=== PATIENT | female | born 1930 | race Caucasian/White ===

== ENCOUNTER 2018-03-04 13:38 | Outpatient (CLI) | payer MEDICARE, OTHER ==
--- NOTE | 2018-03-04 14:29 | RAD ---
CHEST 2 VIEWS: COMPARISON: 12/09/06, 02/22/17. FINDINGS: Stable postoperative change in the right breast. Atherosclerosis of the aorta. Normal cardiac silho uette. The pulmonary vessels and hilum are normal. Costophrenic angles are clear. Chronic changes in the lung parenchyma. Hyperinflation is noted. There is no pneumothorax. Diffuse bony deminerali zation. IMPRESSION: Chronic changes. Atherosclerosis. POS: [facility]
== END 2018-03-04 13:39 | disposition home or self-care (01) ==
LOC: RAD 13:38
PROVIDERS: ATTEND Internal Medicine Critical Care Medicine
DX: I70.90 Unspecified atherosclerosis (principal); R06.00 Dyspnea, unspecified; Z98.890 Other specified postprocedural states
CPT/HCPCS: 71046

== ENCOUNTER 2018-03-19 09:12 | Observation (INO) | payer MEDICARE, OTHER ==
[2018-03-19 09:49] LABS: #Eosinphils 0.1 thou/uL (0.0-0.7); #Lymphocytes 1.3 thou/uL (1.20-3.40); #Monocytes 0.6 thou/uL (0.11-0.59); #Neutrophils 4.9 thou/uL (1.40-6.50); %Basophils 0.4 % (0.0-1.0); %Eosinophils 1.6 % (0.0-10.0); %Lymphocytes 18.8 % (21.0-51.0); %Monocytes 8.7 % (0.0-10.0); %Neutrophils 70.5 % (42.0-75.0); Hemoglobin 15.6 g/dL (12.0-16.0); Mean Corpuscular HGB CONC 31.9 g/dL (32.0-36.0); Mean Corpuscular Hemoglobin 29.1 pg (27.0-31.0); Mean Corpuscular Volume 91.3 fl (81.0-99.0); Mean Platelet Volume 8.7 fL (7.4-10.4); Platelet Count 268 thou/uL (130-400); RBC Distribution Width 12.5 % (11.5-14.5); Red Blood Cell (RBC) Count 5.34 mill/uL (4.20-5.40)
[2018-03-19] MEDS ORDERED: Furosemide 40 MG TAB ONE (09:51)
[2018-03-19 09:57] LABS: PTT 30.4 SEC (22.9-36.1); Prothrombin Time 12.9 SEC (12.0-14.7)
[2018-03-19 10:00] LABS: Anion Gap 12 mmol/L (10-20); BUN (Urea Nitrogen) 15 mg/dL (9.8-20.1); Calc. Creatinine Clearance 0 mL/min (70-130); Calcium 9.7 mg/dL (7.8-10.44); Carbon Dioxide 30 mmol/L (23-31); Chloride 103 mmol/L (98-107); Estimated GFR-MDRD 67; Glucose 87 mg/dL (83-110); Potassium 4.2 mmol/L (3.5-5.1); Sodium 141 mmol/L (136-145)
--- NOTE | 2018-03-19 10:25 | CT ---
CT OF HEAD NONCONTRAST: Date: 03/19/18 INDICATION: Altered mental status. FINDINGS: The ventricular system is prominent in size and there is periventricular white matter hypoattenuation . No hemorrhage, mass effect, or midline shift. There is mild scattered paranasal sinus mucosal thick ening. There are lacunar infarctions bilateral basal ganglia. IMPRESSION: 1. Prominence of the ventricular system with periventricular white matter hypoattenuation. No signif icant parenchymal atrophy. Correlate clinically for normal pressure hydrocephalus, which is a clinica l diagnosis. Alternatively, the prominent ventricular system could relate to degree of ex vacuo dilat ation in the setting that the periventricular white matter hypodensities correspond to chronic ischem ic disease. 2. Note is made that size of ventricular system does not correspond to degree of intracranial pressu re. POS: [facility]
[2018-03-19 14:00] LABS: Troponin I Less than 0.010 ng/mL (< 0.028)
[2018-03-19] MEDS ORDERED: Guaifenesin DM 100-10/5 ML UDCUP PO PRN (14:21)
[2018-03-19] MEDS ORDERED: Senokot 8.6 MG TAB PO PRN (14:21)
[2018-03-19] MEDS ORDERED: Acetaminophen 325 MG TAB PO PRN (14:21)
--- NOTE | 2018-03-19 15:17 | HP ---
REASON FOR ADMISSION: TIA. HISTORY OF PRESENTING ILLNESS: The patient gives history of an episode happened around 2:00 p.m. yesterday where she could not focus and was talking gibberish. She also developed left arm and facial paraesthesias. This lasted for nearly 20 minutes. It resolved on its own. She told her granddaughter who is a nurse and was asked to come to the emergency room today. No complaints of chest pain, palpitation, or PND. Patient has chronic cough due to her prior smoking history. She uses cane to ambulate. The patient states she has been a little more unsteady than usual from yesterday after the episode. PAST MEDICAL AND SURGICAL HISTORY: History of prior TIAs x3 with no residual paralysis, hypertension, dyslipidemia, COPD, macular degeneration, history of diverticulosis, GERD, osteoporosis, history of breast cancer with right breast lumpectomy and radiation done at [facility] in 1991. She has completed 5 years of tamoxifen therapy. Total abdominal hysterectomy with bilateral salpingo-oophorectomy due to fibroids, right wrist surgery with plate and screws , history of left wrist surgery as well. CURRENT MEDICATIONS: Omeprazole 20 mg daily, potassium chloride 20 mEq p.o. daily, L-arginine 500 mg p.o. daily, alprazolam 0.25 mg p.o. q.4 hourly p.r.n., Advair Diskus 250/50 mcg daily, Symbicort inhaler 160/4.5 mcg 2 puffs twice daily, DuoNebs q.6 hourly p.r.n., Plavix 75 mg p.o. daily, vitamin D 3000 units p.o. daily, Lasix 40 mg p.o. daily, Crestor 40 mg p.o. at bedtime, Norvasc 5 mg daily. ALLERGIES: CODEINE. PERSONAL HISTORY: Quit smoking 20 years ago, prior to which has smoked 1-2 packs a day for nearly 30-40 years. Does not abuse alcohol or drugs. FAMILY HISTORY: Mother in her childbirth in her 30s. Father lived up to 80 years and had pneumonia prior to his . Had a son who of non- Hodgkin's lymphoma in his 30s, had 4 brothers who are , many of them had cancer of the lung and [place]. REVIEW OF SYSTEMS: The following complete review of systems was negative, unless otherwise mentioned in the HPI or below: Constitutional: Weight loss or gain, ability to conduct usual activities. Skin: Rash, itching. Eyes: Double vision, pain. ENT/Mouth: Nose bleeding, neck stiffness, pain, tenderness. Cardiovascular: Palpitations, dyspnea on exertion, orthopnea. Respiratory: Shortness of breath, wheezing, cough, hemoptysis, fever or night sweats. Gastrointestinal: Poor appetite, abdominal pain, heartburn, nausea, vomiting, constipation, or diarrhea. Genitourinary: Urgency, frequency, dysuria, nocturia. Musculoskeletal: Pain, swelling. Neurologic/Psychiatric: Anxiety, depression. Allergy/Immunologic: Skin rash, bleeding tendency. CODE STATUS: Patient is DNR per prior records and this was confirmed with patient. PHYSICAL EXAMINATION: GENERAL: The patient is an 87-year-old female who is currently not in any acute distress. VITAL SIGNS: Blood pressure 190/60 on arrival, subsequent pressures have been 140/50, pulse 76 per minute, respiratory rate 18 per minute, temperature 97.9 degrees Fahrenheit, saturating 95% on room air. NECK: Supple, no elevated JVD. EYES: Extraocular muscles intact. Pupils reacting to light. ORAL CAVITY: Mucous membranes are moist. No exudates or congestion. CARDIOVASCULAR SYSTEM: S1, S2 heard. Regular rhythm. RESPIRATORY SYSTEM: Air entry 1+ bilateral. Scattered rhonchi plus no wheezes. ABDOMEN: Soft, bowel sounds heard. No tenderness, rigidity or guarding. EXTREMITIES: No peripheral edema or calf tenderness. VASCULAR SYSTEM: Peripheral pulses 1+ bilateral, no ischemic ulcerations or gangrene. CENTRAL NERVOUS SYSTEM: Cranial nerves are grossly intact. Motor system strength is 5/5 in all 4 extremities. Patient is right handed. Reflexes are 2 + bilateral. Babinski is downgoing. Cerebellar signs are grossly intact. Gait was not tested. PSYCHIATRIC SYSTEM: The patient's mood is euthymic. No hallucinations or delusions. IMAGING DATA AND LABORATORY DATA: CT brain done shows no acute infarct seen. There is prominence of ventricular system. White count of 7, hemoglobin and hematocrit 15 and 48, platelet count 268, MCV is 91 with 70% neutrophils. PT, INR, and PTT within normal limits. Electrolytes are stable. BUN 15, creatinine 0.8, glucose 87. First set of cardiac enzymes are negative. EKG done shows sinus rhythm at 71 beats per minute. There is poor R-wave progression seen. CLINICAL IMPRESSION AND PLAN: The patient will be under observation on telemetry for possible TIA with word finding difficulty and paraesthesias on the left upper extremity and face. We will continue her on Plavix and add aspirin as well for her current stay and continue Crestor. We will obtain MRI of the brain and ultrasound of the carotids. PT/OT evaluations will be requested. We will continue her home medications including Norvasc and DuoNebs as before. We will continue to closely monitor her for any hemodynamic compromise. Code status is DNR. MTDD
--- NOTE | 2018-03-19 16:16 | MRI ---
MRI OF BRAIN PERFORMED WITHOUT CONTRAST ENHANCEMENT: 03/19/18 HISTORY: Altered mental status. TIA. COMPARISON: CT done earlier today. Ventricular system is again noted to be mildly prominent. There is fairly prominent white matter sign al change on the T2 and FLAIR sequences. On the diffusion weighted sequence, I see no signs that woul d suggest any type of infarct. No intra or extra-axial mass. Mastoid air cells and visualized sinuses are clear. IMPRESSION: Atrophy of white matter changes most likely on the basis of chronic white matter change. The ventricu lar system does appear slightly more prominent than the sulcal prominence. Possibility of normal pres sure hydrocephalus should be a consideration. POS: [facility]
[2018-03-19 17:06] LABS: Troponin I Less than 0.010 ng/mL (< 0.028)
--- NOTE | 2018-03-19 17:11 | ULT ---
BILATERAL CAROTID DUPLEX ULTRASOUND: 03/19/18 HISTORY: TIA. TECHNIQUE: Westbrook scale, color flow, and spectral doppler imaging of the extracranial carotid artery system is per formed bilaterally. FINDINGS: There is plaque formation on either side. The peak systolic velocity in the right ICA measures 75 cm/s with and end diastolic velocity of 22 cm /s and systolic ratio of 0.85. The peak systolic velocity in the left ICA measures 95 cm/s with and end diastolic velocity of 9 cm/s and systolic ratio of 1.28. The vertebral arteries could not be satisfactorily evaluated due to interference from hearing aids. IMPRESSION: No evidence of hemodynamically significant stenosis in either ICA. POS: [facility]
[2018-03-19 17:14] VITALS: BMI 31.1
[2018-03-19 19:47] LABS: Troponin I Less than 0.010 ng/mL (< 0.028)
[2018-03-19] MEDS ORDERED: Rosuvastatin 20 MG TAB PO SCH (21:00)
[2018-03-20 06:08] LABS: #Eosinphils 0.2 thou/uL (0.0-0.7); #Lymphocytes 2.1 thou/uL (1.20-3.40); #Monocytes 0.8 thou/uL (0.11-0.59); #Neutrophils 3.1 thou/uL (1.40-6.50); %Basophils 0.4 % (0.0-1.0); %Eosinophils 2.4 % (0.0-10.0); %Lymphocytes 33.8 % (21.0-51.0); %Neutrophils 50.4 % (42.0-75.0); Mean Corpuscular HGB CONC 32.8 g/dL (32.0-36.0); Mean Corpuscular Hemoglobin 29.2 pg (27.0-31.0); Mean Corpuscular Volume 89.2 fl (81.0-99.0); Mean Platelet Volume 8.6 fL (7.4-10.4); Platelet Count 248 thou/uL (130-400); RBC Distribution Width 12.5 % (11.5-14.5); Red Blood Cell (RBC) Count 4.77 mill/uL (4.20-5.40); White Blood Cell (WBC) Count 6.2 thou/uL (4.8-10.8)
[2018-03-20 06:21] LABS: Anion Gap 11 mmol/L (10-20); BUN (Urea Nitrogen) 18 mg/dL (9.8-20.1); Calc. Creatinine Clearance 56 mL/min (70-130); Carbon Dioxide 31 mmol/L (23-31); Cardiac Risk 2.8 (Less than 4.5); Chloride 105 mmol/L (98-107); Cholesterol 112 mg/dl (< 200 Desired); Estimated GFR-MDRD 67; Glucose 91 mg/dL (83-110); HDL Cholesterol 40 mg/dL (>60 Neg Risk); LDL Cholesterol, Calculated 48 mg/dL; Potassium 3.9 mmol/L (3.5-5.1); Sodium 143 mmol/L (136-145); Triglycerides 118 mg/dL (Less than 150)
[2018-03-20] MEDS ORDERED: Enoxaparin Sodium 40 MG/0.4 ML SYRINGE SC SCH (09:00)
[2018-03-20] MEDS ORDERED: Famotidine 20 MG TAB PO SCH (09:00)
[2018-03-20] MEDS ORDERED: Clopidogrel Bisulfate 75 MG TAB PO SCH (09:00)
[2018-03-20] MEDS ORDERED: Aspirin 325 mg Enteric Coated Tablet PO SCH (09:00)
[2018-03-20] MEDS ORDERED: Amlodipine 5 MG TAB PO SCH (09:00)
[2018-03-20 09:23] VITALS: TEMP 98
[2018-03-20 11:29] VITALS: BP 170/85
--- NOTE | 2018-03-21 15:22 | DIS ---
DATE OF ADMISSION: 03/19/2018 DATE OF DISCHARGE: 03/20/2018 DISCHARGE DISPOSITION: To home. PRIMARY DISCHARGE DIAGNOSIS: Transient ischemic attack, resolved. SECONDARY DISCHARGE DIAGNOSES: Hypertension, dyslipidemia, chronic obstructive pulmonary disease. PROCEDURES DONE DURING HOSPITALIZATION: The patient has had ultrasound carotid Doppler done which showed no evidence of hemodynamically significant stenosis. MRI brain showed atrophy of white matter, most likely on the basis of chronic white matter change. Ventricular system does appear to be slightly more prominent than the sulcal prominence. No acute infarct was seen. Total cholesterol 112, triglycerides 118, LDL 48, HDL 40. Troponin x3 negative. DISCHARGE MEDICATIONS: Albuterol inhaler q.4 hourly p.r.n., Norvasc 5 mg p.o. q.a.m., Plavix 75 mg p.o. q.a.m., Breo Ellipta 1 puff twice daily, Lasix 40 mg p.o. q.a.m., omeprazole 20 mg p.o. at bedtime, potassium chloride 20 mEq p.o. daily, Crestor 40 mg p.o. at bedtime. ALLERGIES: CODEINE. DISCHARGE PLAN: The patient to follow up with primary care physician in 1 week. BRIEF COURSE DURING HOSPITALIZATION: The patient initially was brought to the ER after she had an episode of not able to focus and was confused. She also developed left arm and facial paraesthesia, which lasted nearly 20 minutes. In view of this history the patient was placed under observation on the stroke unit for possible TIA. She has had complete stroke workup done which has been negative for any acute stroke. All her symptoms completely got resolved even prior to her hospitalization. She has remained hemodynamically stable and neurologically stable. She will be shortly discharged home. Please see a face- to-face documentation on [facility] for the day of discharge. [facility]
--- NOTE | 2018-03-24 09:03 | PDOC.PN ---
- Subjective Encounter Start Date: 03/20/18 Encounter Start Time: 07:00 Subjective: no sob or weakness, feels good -: daughter at bedside - Objective Resuscitation Status: Resuscitation Status DNR:Do Not Resuscitate MAR Reviewed: Yes Vital Signs & Weight: Weight Weight 165 lb 3 oz Result Diagrams: 03/20/18 05:30 03/20/18 05:30 Phys Exam - Physical Examination HEENT: PERRLA, moist MMs Neck: no JVD, supple Respiratory: no wheezing, no rales Cardiovascular: RRR, no significant murmur Gastrointestinal: soft, non-tender, positive bowel sounds Musculoskeletal: no edema, pulses present Neurological: non-focal, moves all 4 limbs Psychiatric: normal affect, A&O x 3 Dx/Plan (1) TIA (transient ischemic attack) Status: Resolved (2) COPD (chronic obstructive pulmonary disease) Status: Chronic Qualifiers: COPD type: chronic bronchitis Chronic bronchitis type: unspecified Qualified Code(s): J42 - Unspecified chronic bronchitis (3) HTN (hypertension) Code(s): I10 - ESSENTIAL (PRIMARY) HYPERTENSION Status: Chronic Qualifiers: Hypertension type: essential hypertension Qualified Code(s): I10 - Essential (primary) hypertension (4) Dyslipidemia Code(s): E78.5 - HYPERLIPIDEMIA, UNSPECIFIED Status: Chronic - Plan MRI and usg carotid results noted with no ac abnormalities -: hemo/neuro stable -: dc pt home -: d/w patient and family at bedside * .
== END 2018-03-20 10:08 | disposition home or self-care (01) ==
LOC: ERS 09:12 → 2SE 13:29
PROVIDERS: ADMIT Internal Medicine; ATTEND Internal Medicine
DX: G45.9 Transient cerebral ischemic attack, unspecified (principal); I10 Essential (primary) hypertension; K21.9 Gastro-esophageal reflux disease without esophagitis; M81.0 Age-related osteoporosis without current pathological fracture; E78.5 Hyperlipidemia, unspecified; Z86.73 Personal history of transient ischemic attack (TIA), and cerebral infarction without residual deficits; Z79.02 Long term (current) use of antithrombotics/antiplatelets; Z79.899 Other long term (current) drug therapy; Z88.5 Allergy status to narcotic agent; Z66 Do not resuscitate
CPT/HCPCS: 70450; 70551; 80048 ×2; 80061; 84484 ×2; 85025 ×2; 85610; 85730; 93005; 93880; 96372; 97139 ×3; 97530; 99285; G0378; G8987; G8988; G8989; 36415; J1650

== ENCOUNTER 2018-03-27 08:59 | Outpatient (CLI) | payer MEDICARE, OTHER | END 2018-03-27 09:00 | disposition home or self-care (01) | LOC: CP 08:59 | PROVIDERS: ATTEND Internal Medicine Critical Care Medicine | DX: J43.8 Other emphysema (principal) | CPT/HCPCS: 94060; 94727; 94729 ==

== ENCOUNTER 2018-05-03 23:06 | Inpatient (IN) | payer MEDICARE, OTHER ==
[2018-05-04 02:14] VITALS: BMI 26.3
[2018-05-04 02:22] LABS: Lactic Acid 0.6 mmol/L (0.5-2.2)
[2018-05-04] MEDS ORDERED: Diabetic Tussin 200 MG/10 ML UDCUP PO PRN (07:30)
[2018-05-04] MEDS ORDERED: Chloraseptic Spray 180 ml Bottle PO PRN (07:30)
[2018-05-04] MEDS ORDERED: Ondansetron ODT 4 MG TAB PO PRN (07:30)
[2018-05-04] MEDS ORDERED: Loperamide HCl 2 MG CAP PO PRN (07:30)
[2018-05-04] MEDS ORDERED: Ondansetron HCl/PF 4 MG/2 ML Vial IVP PRN (07:30)
[2018-05-04] MEDS ORDERED: Senokot 8.6 MG TAB PO PRN (07:30)
[2018-05-04] MEDS ORDERED: ALPRAZolam 0.25 MG TAB PO PRN (07:30)
[2018-05-04] MEDS ORDERED: Nitroglycerin 0.4 MG TAB (25 Tab Bottle) SL PRN (07:30)
[2018-05-04] MEDS ORDERED: Artificial Tear Sol 15 ML BOT EA EYE PRN (07:30)
[2018-05-04] MEDS ORDERED: Acetaminophen 325 MG TAB PO PRN (07:30)
[2018-05-04] MEDS ORDERED: Eucerin (Mineral Oil/Petrolatum,White) 30 gm Jar TOP PRN (07:30)
[2018-05-04] MEDS ORDERED: hydrALAZINE 20 MG/ML VIAL SLOW IVP PRN (07:30)
[2018-05-04] MEDS ORDERED: Loratadine 10 MG TAB PO PRN (07:30)
[2018-05-04] MEDS ORDERED: Sodium Chloride 0.65% Nasal 44 ML BOT EA NARE PRN (07:30)
[2018-05-04] MEDS ORDERED: Betamethasone 0.1% Cream 15 GM TUBE TOP PRN (08:00)
[2018-05-04] MEDS: Furosemide 40 MG TAB PO SCH (08:41)
[2018-05-04] MEDS: Saccharomyces boulardii 250 MG CAP PO SCH (08:41)
[2018-05-04] MEDS: Potassium Chloride 20 MEQ TAB PO SCH (08:41)
[2018-05-04] MEDS: Clopidogrel Bisulfate 75 MG TAB PO SCH (08:42)
[2018-05-04] MEDS: Amlodipine 5 MG TAB PO SCH (08:43)
[2018-05-04] MEDS: Enoxaparin Sodium 40 MG/0.4 ML SYRINGE SC SCH (08:44)
[2018-05-04] MEDS: cefTRIAXone\\ROCEPHIN 1 GM in Sodium Chloride 0.9% 100 ML IVPB SCH (08:44)
[2018-05-04] MEDS: Milk Of Magnesia 30 ML UDCUP PO PRN (08:54)
--- NOTE | 2018-05-04 11:43 | HP ---
PRIMARY CARE PHYSICIAN: Bree Galindo M.D. REASON FOR ADMISSION: Transfer from [facility] for urinary tract infection and seps is. HISTORY OF PRESENT ILLNESS: An 87-year-old female who went to [facility] for evalua tion of fever. She had 101.5 fever at the [facility]. She was complaining of low b ack pain and weakness. She was also complaining of shortness of breath. She was feeling that she is getting another pneumonia and that is why she wanted to check out and that is why she went to [facility]. She was expecting her discharge from the ER, but subsequently as she was febr ile and she was saturating 87% on room air, she was also appeared little bit short of breath in the e mergency room and that is why ER physician transferred her to our emergency room for possible COPD fl areup as well as UTI and sepsis. She was evaluated in our emergency room last night. At that time, she was afebrile. She was hemodyn amically stable. This patient has chronic respiratory failure and mostly she is using oxygen during night time. This patient was already admitted from the ER to our hospital as a full admission. This morning around 7:00, I evaluated her and she was feeling much better. She did not have any furt her fever. She was feeling that her shortness of breath is chronic, which is baseline. Patient repo rts that she is dealing with a postnasal drip lately, because of allergies and that precipitating her chronic obstructive pulmonary disease flare-up. She denies any cough, hemoptysis. She denies any p leuritic chest pain. She denies any recent travel or sick exposure. Even though, she does not have any UTI symptoms as well other than just low back pain, she denies any constipation, diarrhea, melena , hematochezia. She is able to ambulate by herself. REVIEW OF SYSTEMS: The following complete review of systems was negative, unless otherwise mentioned in the HPI or below: Constitutional: Weight loss or gain, ability to conduct usual activities. Skin: Rash, itching. Eyes: Double vision, pain. ENT/Mouth: Nose bleeding, neck stiffness, pain, tenderness. Cardiovascular: Palpitations, dyspnea on exertion, orthopnea. Respiratory: Shortness of breath, wheezing, cough, hemoptysis, fever or night sweats. Gastrointestinal: Poor appetite, abdominal pain, heartburn, nausea, vomiting, constipation, or diarr hea. Genitourinary: Urgency, frequency, dysuria, nocturia. Musculoskeletal: Pain, swelling. Neurologic/Psychiatric: Anxiety, depression. Allergy/Immunologic: Skin rash, bleeding tendency. Please see my HPI for pertinent positive and negative. All other review of system reviewed and negat dimitris except as mentioned in the HPI. PAST MEDICAL HISTORY: History of TIA x3 without any residual deficit, hypertension, dyslipidemia, CO PD, chronic respiratory failure on nocturnal oxygen therapy, macular degeneration, diverticulosis, ga stroesophageal reflux disease, osteoporosis, history of breast cancer with a right breast lumpectomy and radiation therapy done at [facility] in 1991. Subsequently, she also completed 5 years of tamox ifen therapy. PAST SURGICAL HISTORY: Total abdominal hysterectomy, bilateral salpingo-oophorectomy for fibroid, ri ght wrist surgery with plates and screws, left wrist surgery. PAST PSYCHIATRIC HISTORY: The patient has anxiety disorder. SOCIAL HISTORY: Patient is a former smoker. She quit smoking more than 20 years ago. She denies an y alcohol abuse. She denies any other illicit drug abuse. She lives at home with her family. FAMILY HISTORY: Mother in her childbirth in her 30s. Father lived up to 80 years and he from pneumonia. Son who from non-Hodgkin's lymphoma in his 30s and for brother also disea sed and they had lung cancer and heart disease. ALLERGIES: CODEINE. She is not tolerating well. EMERGENCY ROOM COURSE: At [facility], she was given Zosyn and Tylenol. In our [facility] room, the patient did not given any medication. CURRENT HOME MEDICATIONS: Ventolin HFA 2 puffs q.6 hourly p.r.n., Xanax 0.25 mg p.o. t.i.d. p.r.n., amlodipine 5 mg p.o. daily, Plavix 75 mg p.o. daily, Breo Ellipta 1 inhalation b.i.d., Lasix 40 mg p. o. daily, DuoNeb q.4 hours p.r.n., Ativan 0.5 mg p.o. at bedtime p.r.n., lorazepam 1 mg p.o. at bedti me, mometasone topical application b.i.d. p.r.n., naproxen 500 mg p.o. b.i.d., nitroglycerin p.r.n., omeprazole 20 mg p.o. daily, Zofran 4 mg q.6 hours p.r.n., Crestor 40 mg p.o. at bedtime, potassium c hloride 20 mEq p.o. daily. PHYSICAL EXAMINATION: VITAL SIGNS: At the [facility], fever of 101.5, blood pressure 140/65, saturation 8 7% on room air, pulse 96, respiratory rate 20. GENERAL: Patient is currently alert, oriented, no acute distress. HEENT: Head: Normocephalic, atraumatic. Eyes: Pupils round, reactive to light. Extraocular muscl e intact. ENT: Oropharynx within normal limits. Moist mucous membranes, no oral lesion, no pharyng eal erythema, no exudate. NECK: Supple, no JVD, no thyromegaly, no carotid bruit. LUNGS: Clear to auscultation without any rhonchi or rales. No accessory muscles of respiration in u se. CARDIAC: S1, S2 regular without any murmur. ABDOMEN: Soft, bowel sounds present, nontender, nondistended. No organomegaly, no mass, no suprapub ic tenderness. BACK: Unremarkable, no CVA tenderness. EXTREMITIES: Upper extremity, passive movement of all joints are normal. Lower extremity, no edema. Good peripheral pulsation. SKIN: No skin rash. HEMATOLOGICAL: No lymphadenopathy. PSYCHIATRIC: Normal affect. SIGNIFICANT LABORATORY DATA: CBC: WBC 11.9, hemoglobin 13.0, platelet 276 with a left shift. D-dim er 0.42. Sodium 141, potassium 3.6, chloride 99, carbon dioxide 25, anion gap 21, BUN 14, creatinine 0.84, glucose 160, calcium 9.1, lactic acid 1.2. LFT: AST 19, ALT 17, alkaline phosphatase 68, alb umin 3.7, CK-MB 0.9, troponin 0.021. Urinalysis: Leukocyte esterase moderate. X-RAY FINDINGS: Chest x-ray based on my review, chronic changes without any acute process. ASSESSMENT AND PLAN: 1. Sepsis. The patient has leukocytosis with a left shift, high grade fever and source of infection is urinary tract infection. Patient is kept on broad spectrum antibiotic therapy with Rocephin and levofloxacin and will follow up on culture result and based on culture result, we will change antibio tic therapy accordingly. 2. Urinary tract infection. Patient is on Rocephin and levofloxacin. We will follow up on urine cu lture result and we will change antibiotic therapy accordingly. 3. Chronic respiratory failure on oxygen therapy. The patient will continue her oxygen 2 liter nasa l cannula to maintain saturation above 90%. 4. Chronic obstructive pulmonary disease with possible mild exacerbation, now patient feels up to he r baseline level. She does not have any further exacerbation at this point. May be because of fever , she was tachypneic at the [facility]. Currently, she will continue her Breo Ellip ta, DuoNeb therapy q.6 hourly, Ventolin inhaler on a p.r.n. basis. She does not need any further jason roid, because she is not in further exacerbations. 5. Anxiety disorder. We will continue Xanax 0.25 mg p.o. t.i.d. p.r.n., lorazepam 1 mg p.o. at bedt jan p.r.n. 6. Gastroesophageal reflux disease. We will continue Protonix 40 mg p.o. daily. 7. Dyslipidemia. We will continue Crestor 40 mg p.o. at bedtime. 8. Hypertension. We will continue amlodipine 5 mg p.o. daily. 9. History of transient ischemic attack. We will continue Plavix 75 mg p.o. daily. 10. Deep venous thrombosis prophylaxis. Lovenox 40 mg subcu daily. 11. Gastrointestinal prophylaxis. Protonix 40 mg p.o. daily. CODE STATUS: The patient is FULL CODE. Disposition plan based on clinical course, based on culture result. Once we have culture result back , then we will consider changing to oral antibiotic therapy and then consider discharge. Plan of car e discussed with the patient in detail.
[2018-05-04] MEDS: Mometasone/Formoterol 120 PUFF INHALER INH SCH (19:01)
[2018-05-04] MEDS: Mag-Al 1200 mg/1200 mg/30 ML UDCUP PO PRN (21:10)
[2018-05-04] MEDS: Rosuvastatin 20 MG TAB PO SCH (21:10)
[2018-05-04] MEDS: Lorazepam 1 MG TAB PO PRN (21:11)
[2018-05-05 05:28] LABS: #Eosinphils 0.3 thou/uL (0.0-0.7); #Monocytes 0.9 thou/uL (0.11-0.59); #Neutrophils 5.8 thou/uL (1.40-6.50); %Basophils 0.2 % (0.0-1.0); %Eosinophils 3.3 % (0.0-10.0); %Lymphocytes 12.8 % (21.0-51.0); %Monocytes 11.6 % (0.0-10.0); %Neutrophils 72.1 % (42.0-75.0); Hemoglobin 12.2 g/dL (12.0-16.0); Mean Corpuscular HGB CONC 32.9 g/dL (32.0-36.0); Mean Corpuscular Hemoglobin 29.5 pg (27.0-31.0); Mean Corpuscular Volume 89.7 fL (78.0-98.0); Mean Platelet Volume 8.2 fL (7.4-10.4); Platelet Count 240 thou/uL (130-400); RBC Distribution Width 12.2 % (11.5-14.5); Red Blood Cell (RBC) Count 4.12 mill/uL (4.20-5.40)
[2018-05-05 05:49] LABS: ALT (SGPT) 16 U/L (8-55); AST (SGOT) 20 U/L (5-34); Albumin 3.3 g/dL (3.4-4.8); Alkaline Phosphatase 62 U/L (40-150); Anion Gap 10 mmol/L (10-20); BUN (Urea Nitrogen) 13 mg/dL (9.8-20.1); Bilirubin, Total 0.3 mg/dL (0.2-1.2); Calc. Creatinine Clearance 55 mL/min (70-130); Calcium 8.6 mg/dL (7.8-10.44); Carbon Dioxide 33 mmol/L (23-31); Chloride 100 mmol/L (98-107); Estimated GFR-MDRD 68; Globulin 2.9 g/dL (2.4-3.5); Glucose 113 mg/dL (83-110); Potassium 3.3 mmol/L (3.5-5.1); Protein, Total 6.2 g/dL (6.0-8.3); Sodium 140 mmol/L (136-145)
[2018-05-05] MEDS: Mometasone/Formoterol 120 PUFF INHALER INH SCH ×2 (06:48→19:51)
[2018-05-05] MEDS: cefTRIAXone\\ROCEPHIN 1 GM in Sodium Chloride 0.9% 100 ML IVPB SCH (09:17)
[2018-05-05] MEDS: Potassium Chloride 20 MEQ TAB PO SCH (09:18)
[2018-05-05] MEDS: Amlodipine 5 MG TAB PO SCH (09:18)
[2018-05-05] MEDS: Enoxaparin Sodium 40 MG/0.4 ML SYRINGE SC SCH (09:18)
[2018-05-05] MEDS: Saccharomyces boulardii 250 MG CAP PO SCH (09:18)
[2018-05-05] MEDS: Clopidogrel Bisulfate 75 MG TAB PO SCH (09:18)
[2018-05-05] MEDS: Furosemide 40 MG TAB PO SCH (09:18)
--- NOTE | 2018-05-05 11:37 | PDOC.PN ---
- Subjective Encounter Start Date: 05/05/18 Encounter Start Time: 09:40 -: old records requested/rev Patient seen and examined. No new complaints. No overnight events no fever, no dyspnea - Objective Resuscitation Status: Resuscitation Status FULL:Full Resuscitation MAR Reviewed: Yes Vital Signs & Weight: Vital Signs (12 hours) Temp Pulse Resp BP BP BP Pulse Ox 05/05/18 09:18 83 149/64 H 05/05/18 08:00 98.2 F 83 20 92 L 05/05/18 07:35 98.2 F 83 20 149/64 H 92 L 05/05/18 06:46 81 14 95 05/05/18 04:00 98.4 F 92 18 135/63 89 L 05/05/18 00:04 92 12 92 L 05/04/18 23:38 97.9 F 92 20 144/63 H 90 L Weight Weight 160 lb 8 oz I&O: 05/04/18 05/05/18 05/06/18 06:59 06:59 06:59 Intake Total 250 240 Balance 250 240 Result Diagrams: 05/05/18 04:21 05/05/18 04:21 Phys Exam - Physical Examination Constitutional: NAD HEENT: PERRLA, moist MMs, sclera anicteric Neck: no JVD, supple Respiratory: no wheezing, no rales, no rhonchi Cardiovascular: RRR, no significant murmur, no rub Gastrointestinal: soft, non-tender, no distention, positive bowel sounds Musculoskeletal: no edema, pulses present Neurological: non-focal, normal sensation, moves all 4 limbs Psychiatric: normal affect, A&O x 3 Skin: no rash, normal turgor Dx/Plan (1) COPD exacerbation Code(s): J44.1 - CHRONIC OBSTRUCTIVE PULMONARY DISEASE W (ACUTE) EXACERBATION Status: Resolved (2) Hypokalemia Code(s): E87.6 - HYPOKALEMIA Status: Acute (3) Sepsis Code(s): A41.9 - SEPSIS, UNSPECIFIED ORGANISM Status: Acute (4) UTI (urinary tract infection) Status: Acute (5) Anxiety Code(s): F41.9 - ANXIETY DISORDER, UNSPECIFIED Status: Chronic (6) Dyslipidemia Code(s): E78.5 - HYPERLIPIDEMIA, UNSPECIFIED Status: Chronic (7) GERD (gastroesophageal reflux disease) Code(s): K21.9 - GASTRO-ESOPHAGEAL REFLUX DISEASE WITHOUT ESOPHAGITIS Status: Chronic (8) HTN (hypertension) Code(s): I10 - ESSENTIAL (PRIMARY) HYPERTENSION Status: Chronic Qualifiers: - Plan cont current plan of care, continue antibiotics, respiratory therapy * urine culture grew GNR, will follow on C & S result * medication reviewed as below * symptomatic treatment * otherwise stable and improved from COPD point of view * expecting discharge tomorrow. Review of Systems - Review of Systems Eyes: negative: Pain, Vision Change, Conjunctivae Inflammation, Eyelid Inflammation, Redness, Other ENT: negative: Ear Pain, Ear Discharge, Nose Pain, Nose Discharge, Nose Congestion, Mouth Pain, Mouth Swelling, Throat Pain, Throat Swelling, Other Respiratory: negative: Cough, Dry, Shortness of Breath, Hemoptysis, SOB with Excertion, Pleuritic Pain, Sputum, Wheezing Cardiovascular: negative: chest pain, palpitations, orthopnea, paroxysmal nocturnal dyspnea, edema, light headedness, other Gastrointestinal: negative: Nausea, Vomiting, Abdominal Pain, Diarrhea, Constipation, Melena, Hematochezia, Other Genitourinary: negative: Dysuria, Frequency, Incontinence, Hematuria, Retention , Other Musculoskeletal: negative: Neck Pain, Shoulder Pain, Arm Pain, Back Pain, Hand Pain, Leg Pain, Foot Pain, Other Skin: negative: Rash, Lesions, Martin, Bruising, Other - Medications/Allergies Allergies/Adverse Reactions: Allergies Allergy/AdvReac Type Severity Reaction Status Date / Time codeine Allergy Verified 05/04/18 01:37 Medications: Current Medications Acetaminophen (Tylenol) 650 mg PO Q4H PRN PRN Reason: Headache/Fever or Pain Al Hydroxide/Mg Hydroxide (Maalox) 30 ml PO Q6H PRN PRN Reason: Heartburn or Indigestion Last Admin: 05/04/18 21:10 Dose: 30 ml Albuterol/Ipratropium (Duoneb) 3 ml NEB [id number] [facility] Last Admin: 05/05/18 06:46 Dose: 3 ml Alprazolam (Xanax) 0.25 mg PO TID PRN PRN Reason: Anxiety Amlodipine Besylate (Norvasc) 5 mg PO QAM [facility] Last Admin: 05/05/18 09:18 Dose: 5 mg Artificial Tears (Tears Renewed 15ml Bottle) 0 drop EA EYE PRN PRN PRN Reason: Dry Eyes Betamethasone Valerate (Valisone 0.1% Cream) 0 gm TOP BID PRN PRN Reason: ECZEMA/RASH Last Admin: 05/04/18 15:51 Dose: 1 applic Clopidogrel Bisulfate (Plavix) 75 mg PO QAM [facility] Last Admin: 05/05/18 09:18 Dose: 75 mg Enoxaparin Sodium (Lovenox) 40 mg SC 0900 [facility] Last Admin: 05/05/18 09:18 Dose: 40 mg [facility]sem[facility] ([facility]ix) [facility] [place] Last Admin: 05/05/18 09:18 Dose: 40 mg Guaifenesin (Robitussin Sf) 200 mg PO Q4H PRN PRN Reason: Cough Hydralazine HCl (Apresoline) 10 mg SLOW IVP Q4H PRN PRN Reason: Systolic BP > 180 Ceftriaxone Sodium 1 gm/ (Sodium Chloride) 100 mls @ 200 mls/hr IVPB Q24HR [facility] Last Admin: 05/05/18 09:17 Dose: 100 mls Levofloxacin 500 mg/ Device 100 mls @ 100 mls/hr IVPB Q24HR [facility] Last Admin: 05/05/18 10:48 Dose: 100 mls Loperamide HCl (Imodium) 2 mg PO PRN PRN PRN Reason: Diarrhea/Loose Stools Loratadine (Claritin) 10 mg PO DAILYPRN PRN PRN Reason: Sinus Symptoms Lorazepam (Ativan) 1 mg PO HS PRN PRN Reason: Anxiety/Insomnia Last Admin: 05/04/18 21:11 Dose: 1 mg Magnesium Hydroxide (Milk Of Magnesium) 30 ml PO DAILYPRN PRN PRN Reason: Constipation Last Admin: 05/04/18 08:54 Dose: 30 ml Mineral Oil/White Petrolatum (Eucerin Cream) 0 gm TOP BIDPRN PRN PRN Reason: Dry Skin Mometasone Furoate/Formoterol Fumar (Dulera 100 Mcg/5 Mcg Inhaler) 2 puff INH BID-RT [facility] Last Admin: 05/05/18 06:48 Dose: 2 puff Nitroglycerin (Nitrostat) 0.4 mg SL PRN PRN PRN Reason: Chest Pain Ondansetron HCl (Zofran Odt) 4 mg PO Q6H PRN PRN Reason: Nausea/Vomiting Ondansetron HCl (Zofran) 4 mg IVP Q6H PRN PRN Reason: Nausea/Vomiting Pantoprazole Sodium (Protonix) 40 mg PO DAILY [facility] Last Admin: 05/05/18 09:18 Dose: 40 mg Phenol (Chloraseptic [place] 180 Ml Bot) 0 ml PO PRN PRN PRN Reason: Sore Throat Potassium Chloride (K-Dur) 20 meq PO QAM [facility] Last Admin: 05/05/18 09:18 Dose: 20 meq Rosuvastatin Calcium (Crestor) 40 mg PO HS [facility] Last Admin: 05/04/18 21:10 Dose: 40 mg Saccharomyces Boulardii (Florastor) 250 mg PO DAILY [facility] Last Admin: 05/05/18 09:18 Dose: 250 mg Senna (Senokot) 2 tab PO HSPRN PRN PRN Reason: Constipation Sodium Chloride ([place] Nasal [place] 0.65%) 0 ml EA NARE QIDPRN PRN PRN Reason: Nasal Congestion
[2018-05-05] MEDS: Milk Of Magnesia 30 ML UDCUP PO PRN (20:41)
[2018-05-05] MEDS: Mag-Al 1200 mg/1200 mg/30 ML UDCUP PO PRN (20:42)
[2018-05-05] MEDS: Lorazepam 1 MG TAB PO PRN (20:42)
[2018-05-05] MEDS: Rosuvastatin 20 MG TAB PO SCH (20:42)
--- NOTE | 2018-05-05 21:15 | DIS ---
DATE OF ADMISSION: 05/04/2018 DATE OF DISCHARGE: 05/06/2018 DISCHARGE DISPOSITION: Home. PRIMARY DISCHARGE DIAGNOSES: 1. Sepsis, resolved. 2. Urinary tract infection due to gram negative nba. 3. Hypokalemia, corrected. 4. Chronic obstructive pulmonary disease exacerbation, resolved. SECONDARY DISCHARGE DIAGNOSES: 1. Hypertension. 2. Gastroesophageal reflux disease. 3. Dyslipidemia. 4. Anxiety disorder. 5. Chronic obstructive pulmonary disease. 6. Chronic respiratory failure with home oxygen therapy. PRIMARY PROCEDURE/OPERATION: None. RADIOLOGICAL INVESTIGATION: Chest x-ray was normal, chronic changes. SIGNIFICANT LABORATORY DATA: WBC 8.0, hemoglobin 12.2, platelet 240. Sodium 140, potassium 3.3, BUN 13, creatinine 0.80, calcium 8.6. LFT normal. Lactic acid 0.6. Urine culture growing gram negativ e nba. Blood culture is negative. DISCHARGE MEDICATIONS: Levofloxacin 500 mg p.o. daily for 7 days, amlodipine 5 mg p.o. daily, Plavix 75 mg p.o. daily, Breo Ellipta 1 inhalation b.i.d., Lasix 40 mg p.o. daily, naproxen 500 mg p.o. b.i .d. only, omeprazole 20 mg p.o. daily, Crestor 40 mg p.o. at bedtime, potassium chloride 20 mEq p.o. daily, Ventolin inhaler 2 puffs q.6 hourly p.r.n., Xanax 0.25 mg t.i.d., DuoNeb q.4 hours p.r.n., roxanne azepam 0.5-1 mg p.o. at bedtime p.r.n., mometasone topical application b.i.d. p.r.n., nitroglycerin p .r.n., Zofran 4 mg q.6 hourly p.r.n. CONTRAINDICATIONS: None. CODE STATUS: FULL CODE. INPATIENT CONSULTANTS: None. ALLERGIES: CODEINE. DISCHARGE PLAN: Post hospital, the patient is instructed to follow up with primary care physician in 1 week. HOSPITAL COURSE: An 87-year-old female who was having high grade fever at home and she was feeling c hills and weak. She was also short of breath at the same time. She was suspected by herself a new p neumonia as she was recently hospitalized for pneumonia. She went to [facility] whe re chest x-ray did not show any obvious pneumonia. It did show chronic changes. She was having high grade fever. She appeared to be short of breath with a fever. She was suspected for COPD flare up at [facility] and she was sent to our emergency room for further evaluation and alexei tment. She was admitted to medical floor. She was treated with Rocephin and levofloxacin. During t his admission, she does not have any pneumonia, but she was found with urinary tract infection. Marie ent's urine culture grew gram negative nba, official culture and sensitivity result is pending by the time of dictation. Patient is otherwise absolutely normal to go home. We are waiting for culture a nd sensitivity result, we will consider discharging her home on p.o. Levaquin for another 7 days. The patient is doing very well. She is vital stover stable. Her COPD is also baseline. The patient w ill follow up with primary care physician after discharge in 1 week. All new medication prescription sent to her pharmacy. The patient is seen and examined at bedside today.
[2018-05-06] MEDS: Mometasone/Formoterol 120 PUFF INHALER INH SCH (06:39)
[2018-05-06] MEDS: cefTRIAXone\\ROCEPHIN 1 GM in Sodium Chloride 0.9% 100 ML IVPB SCH (08:18)
[2018-05-06] MEDS: Amlodipine 5 MG TAB PO SCH (08:19)
[2018-05-06] MEDS: Enoxaparin Sodium 40 MG/0.4 ML SYRINGE SC SCH (08:19)
[2018-05-06] MEDS: Clopidogrel Bisulfate 75 MG TAB PO SCH (08:19)
[2018-05-06] MEDS: Potassium Chloride 20 MEQ TAB PO SCH (08:20)
[2018-05-06] MEDS: Furosemide 40 MG TAB PO SCH (08:20)
[2018-05-06] MEDS: Saccharomyces boulardii 250 MG CAP PO SCH (08:20)
--- NOTE | 2018-05-06 08:57 | ADD-DIS ---
ADDENDUM The patient's urine culture showed gram-negative nba, but colony count was less than 10,000 and that is why she did not require any further waiting for culture and sensitivity result and that is why we are considering discharge to home with p.o. levofloxacin, which patient has significantly improved wi th. There is no change in my discharge summary dictated yesterday. The patient is seen and examined at bedside today. Please see my progress note from today for further detail.
--- NOTE | 2018-05-06 09:34 | PDOC.PN ---
- Subjective Encounter Start Date: 05/06/18 Encounter Start Time: 08:55 Patient seen and examined. No new complaints. No overnight events - Objective Resuscitation Status: Resuscitation Status FULL:Full Resuscitation MAR Reviewed: Yes Vital Signs & Weight: Vital Signs (12 hours) Temp Pulse Resp BP BP Pulse Ox Pulse Ox 05/06/18 08:19 100 130/58 L 05/06/18 07:47 84 L 05/06/18 07:36 98.6 F 100 18 130/58 L 86 L 05/06/18 06:37 79 14 94 L 05/06/18 04:11 98.6 F 79 20 149/65 H 95 05/06/18 00:46 98.6 F 88 20 145/64 H 92 L 05/06/18 00:41 12 Pulse Ox 05/06/18 08:19 05/06/18 07:47 93 L 05/06/18 07:36 05/06/18 06:37 05/06/18 04:11 05/06/18 00:46 05/06/18 00:41 Weight Weight 160 lb 8 oz I&O: 05/05/18 05/06/18 05/07/18 06:59 06:59 06:59 Intake Total 240 1800 Balance 240 1800 Result Diagrams: 05/05/18 04:21 05/05/18 04:21 Phys Exam - Physical Examination Constitutional: NAD HEENT: PERRLA, moist MMs, sclera anicteric Neck: no JVD, supple Respiratory: no wheezing, no rales, no rhonchi Cardiovascular: RRR, no significant murmur, no rub Gastrointestinal: soft, non-tender, no distention, positive bowel sounds Musculoskeletal: no edema, pulses present Neurological: non-focal, normal sensation, moves all 4 limbs Psychiatric: normal affect, A&O x 3 Skin: no rash, normal turgor Dx/Plan (1) COPD exacerbation Code(s): J44.1 - CHRONIC OBSTRUCTIVE PULMONARY DISEASE W (ACUTE) EXACERBATION Status: Resolved (2) Hypokalemia Code(s): E87.6 - HYPOKALEMIA Status: Acute (3) Sepsis Code(s): A41.9 - SEPSIS, UNSPECIFIED ORGANISM Status: Acute (4) UTI (urinary tract infection) Status: Acute (5) Anxiety Code(s): F41.9 - ANXIETY DISORDER, UNSPECIFIED Status: Chronic (6) Dyslipidemia Code(s): E78.5 - HYPERLIPIDEMIA, UNSPECIFIED Status: Chronic (7) GERD (gastroesophageal reflux disease) Code(s): K21.9 - GASTRO-ESOPHAGEAL REFLUX DISEASE WITHOUT ESOPHAGITIS Status: Chronic (8) HTN (hypertension) Code(s): I10 - ESSENTIAL (PRIMARY) HYPERTENSION Status: Chronic Qualifiers: - Plan cont current plan of care, continue antibiotics, respiratory therapy * medication reviewed as below * symptomatic treatment * stable for discharge * see discharge jael. Review of Systems - Review of Systems Eyes: negative: Pain, Vision Change, Conjunctivae Inflammation, Eyelid Inflammation, Redness, Other ENT: negative: Ear Pain, Ear Discharge, Nose Pain, Nose Discharge, Nose Congestion, Mouth Pain, Mouth Swelling, Throat Pain, Throat Swelling, Other Respiratory: negative: Cough, Dry, Shortness of Breath, Hemoptysis, SOB with Excertion, Pleuritic Pain, Sputum, Wheezing Cardiovascular: negative: chest pain, palpitations, orthopnea, paroxysmal nocturnal dyspnea, edema, light headedness, other Gastrointestinal: negative: Nausea, Vomiting, Abdominal Pain, Diarrhea, Constipation, Melena, Hematochezia, Other Genitourinary: negative: Dysuria, Frequency, Incontinence, Hematuria, Retention , Other Musculoskeletal: negative: Neck Pain, Shoulder Pain, Arm Pain, Back Pain, Hand Pain, Leg Pain, Foot Pain, Other - Medications/Allergies Allergies/Adverse Reactions: Allergies Allergy/AdvReac Type Severity Reaction Status Date / Time codeine Allergy Verified 05/04/18 01:37 Medications: Current Medications Acetaminophen (Tylenol) 650 mg PO Q4H PRN PRN Reason: Headache/Fever or Pain Al Hydroxide/Mg Hydroxide (Maalox) 30 ml PO Q6H PRN PRN Reason: Heartburn or Indigestion Last Admin: 05/05/18 20:42 Dose: 30 ml Albuterol/Ipratropium (Duoneb) 3 ml NEB [id number] [facility] Last Admin: 05/06/18 06:37 Dose: 3 ml Alprazolam (Xanax) 0.25 mg PO TID PRN PRN Reason: Anxiety Amlodipine Besylate (Norvasc) 5 mg PO QAM [facility] Last Admin: 05/06/18 08:19 Dose: 5 mg Artificial Tears (Tears Renewed 15ml Bottle) 0 drop EA EYE PRN PRN PRN Reason: Dry Eyes Betamethasone Valerate (Valisone 0.1% Cream) 0 gm TOP BID PRN PRN Reason: ECZEMA/RASH Last Admin: 05/04/18 15:51 Dose: 1 applic Clopidogrel Bisulfate (Plavix) 75 mg PO QAM [facility] Last Admin: 05/06/18 08:19 Dose: 75 mg Enoxaparin Sodium (Lovenox) 40 mg SC 0900 [facility] Last Admin: 05/06/18 08:19 Dose: Not Given [facility]sem[facility] ([facility]ix) [facility] [place] Last Admin: 05/06/18 08:20 Dose: 40 mg Guaifenesin (Robitussin Sf) 200 mg PO Q4H PRN PRN Reason: Cough Hydralazine HCl (Apresoline) 10 mg SLOW IVP Q4H PRN PRN Reason: Systolic BP > 180 Ceftriaxone Sodium 1 gm/ (Sodium Chloride) 100 mls @ 200 mls/hr IVPB Q24HR [facility] Last Admin: 05/06/18 08:18 Dose: 100 mls Levofloxacin 500 mg/ Device 100 mls @ 100 mls/hr IVPB Q24HR [facility] Last Admin: 05/05/18 10:48 Dose: 100 mls Loperamide HCl (Imodium) 2 mg PO PRN PRN PRN Reason: Diarrhea/Loose Stools Loratadine (Claritin) 10 mg PO DAILYPRN PRN PRN Reason: Sinus Symptoms Lorazepam (Ativan) 1 mg PO HS PRN PRN Reason: Anxiety/Insomnia Last Admin: 05/05/18 20:42 Dose: 1 mg Magnesium Hydroxide (Milk Of Magnesium) 30 ml PO DAILYPRN PRN PRN Reason: Constipation Last Admin: 05/05/18 20:41 Dose: 30 ml Mineral Oil/White Petrolatum (Eucerin Cream) 0 gm TOP BIDPRN PRN PRN Reason: Dry Skin Mometasone Furoate/Formoterol Fumar (Dulera 100 Mcg/5 Mcg Inhaler) 2 puff INH BID-RT [facility] Last Admin: 05/06/18 06:39 Dose: 2 puff Nitroglycerin (Nitrostat) 0.4 mg SL PRN PRN PRN Reason: Chest Pain Ondansetron HCl (Zofran Odt) 4 mg PO Q6H PRN PRN Reason: Nausea/Vomiting Ondansetron HCl (Zofran) 4 mg IVP Q6H PRN PRN Reason: Nausea/Vomiting Pantoprazole Sodium (Protonix) 40 mg PO DAILY [facility] Last Admin: 05/06/18 08:20 Dose: 40 mg Phenol (Chloraseptic [place] 180 Ml Bot) 0 ml PO PRN PRN PRN Reason: Sore Throat Potassium Chloride (K-Dur) 20 meq PO QAM [facility] Last Admin: 05/06/18 08:20 Dose: 20 meq Rosuvastatin Calcium (Crestor) 40 mg PO HS [facility] Last Admin: 05/05/18 20:42 Dose: 40 mg Saccharomyces Boulardii (Florastor) 250 mg PO DAILY [facility] Last Admin: 05/06/18 08:20 Dose: 250 mg Senna (Senokot) 2 tab PO HSPRN PRN PRN Reason: Constipation Sodium Chloride ([place] Nasal [place] 0.65%) 0 ml EA NARE QIDPRN PRN PRN Reason: Nasal Congestion
[2018-05-06 11:18] VITALS: BP 150/87; TEMP 98.3
== END 2018-05-06 11:26 | disposition home or self-care (01) | DRG 872 ==
LOC: ERS 23:06 → T4-A 05-04 00:44
PROVIDERS: ADMIT Hospitalist; ATTEND Hospitalist
DX: A41.9 Sepsis, unspecified organism (principal); N39.0 Urinary tract infection, site not specified; J96.10 Chronic respiratory failure, unspecified whether with hypoxia or hypercapnia; J44.1 Chronic obstructive pulmonary disease with (acute) exacerbation; Z99.81 Dependence on supplemental oxygen; I10 Essential (primary) hypertension; K21.9 Gastro-esophageal reflux disease without esophagitis; F41.9 Anxiety disorder, unspecified; E78.5 Hyperlipidemia, unspecified; E87.6 Hypokalemia; Z86.73 Personal history of transient ischemic attack (TIA), and cerebral infarction without residual deficits; Z85.3 Personal history of malignant neoplasm of breast
CPT/HCPCS: 36415; 80053; 83605; 85025; 94640; 99285; G8978-GP-CJ; G8979-GP-CI; G8987-GO-CI; G8988-GO-CI; G8989-GO-CI; J0696; J1650; J1956; J7050; J7620